=== PATIENT | female | born 1995 | race American Indian/Alaskan Native ===

== ENCOUNTER 2016-05-29 17:43 | Emergency (ER) | payer OTHER ==
[2016-05-29 19:03] LABS: Basophils % (Auto) 0.3 % (0.0-1.8); Hematocrit 40.7 % (30.3-42.9); Hemoglobin 13.7 gm/dl (10.1-14.3); Mean Corpuscular HGB Conc 34 % (30-34); Mean Corpuscular Hemoglobin 31 pg (28-32); Mean Corpuscular Volume 92 fl (79-97); Platelet Count 255 K/mm3 (140-440); Red Blood Count 4.42 M/mm3 (3.65-5.03); Red Cell Distribution Width 12.3 % (13.2-15.2); White Blood Count 6.1 K/mm3 (4.5-11.0)
[2016-05-29 19:14] LABS: Anion Gap 20 mmol/L; BUN/Creatinine Ratio 11.66; Blood Urea Nitrogen 7 mg/dL (7-17); Carbon Dioxide 21 mmol/L (22-30); Chloride 102.9 mmol/L (98-107); Glucose 86 mg/dL (65-100); Potassium 3.6 mmol/L (3.6-5.0); Sodium 140 mmol/L (137-145)
[2016-05-29 19:25] LABS: Urine Drugs of Abuse Note Disclamer
--- NOTE | 2016-05-29 19:53 | Emergency Department Report ---
ED Psych HPI - General Chief Complaint: Psych Stated Complaint: SUICIDAL THOUGHTS Time Seen by Provider: 05/29/16 19:26 Source: patient Mode of arrival: Ambulatory Limitations: No Limitations - History of Present Illness Initial Comments: 20-year-old female with a past medical history of PTSD, depression, and asthma presents to the hospital complains of depression and suicidal thoughts. Patient states she has been suicidal for at least one year intermittently with increase in suicidal ideation for the past week. Patient denies any exacerbating factors and states her life is actually going pretty good. She recently started a new job which she is looking for to starting on June 06. Patient has a plan to shoot herself and has a history of PTSD from being in the . Previous attempt by overdose 1 year ago however, patient did not seek medical treatment at that time. Patient states she hears voices that tell herself to just do it, just let go, however, patient feels like she has more to do on this earth. Patient is not taking any psychiatric medications and has never had any inpatient psychiatric treatment. Patient does not have any physical complaints and denies pain. - Related Data Home Medications Medication Instructions Recorded Confirmed Last Taken No Known Home Medications [No 05/29/16 05/29/16 Unknown Reported Home Medications] Allergies Allergy/AdvReac Type Severity Reaction Status Date / Time No Known Allergies Allergy Unverified 05/29/16 18:24 ED Review of Systems ROS: Stated complaint: SUICIDAL THOUGHTS Other details as noted in HPI Comment: All other systems reviewed and negative Other: Constitutional: No fevers chills Eyes: No eye pain visual changes ENT: No ear pain or throat pain Neck: Denies pain Respiratory: Denies cough wheezing shortness of breath Cardiovascular: Denies chest pain, palpitations, syncope GI: Denies abdominal pain, nausea, vomiting, diarrhea : Denies dysuria Musculoskeletal: Denies back pain Skin: Denies rash, lesions, erythema Neurologic: Denies headache, numbness, weakness Psychiatric: As per HPI ED Past Medical Hx - Past Medical History Hx Psychiatric Treatment: Yes (PTSD, Depression) Hx Asthma: Yes Additional medical history: PTSD - Surgical History Past Surgical History?: No - Social History Smoking Status: Current Every Day Smoker Substance Use Type: Alcohol, Marijuana - Medications Home Medications: Home Medications Medication Instructions Recorded Confirmed Last Taken Type No Known Home Medications [No 05/29/16 05/29/16 Unknown History Reported Home Medications] ED Physical Exam - General Limitations: No Limitations - Other Other exam information: General: No limitations, patient is alert in no acute distress Head exam: Atraumatic, normocephalic Eyes exam: Normal appearance ENT: Moist mucous membrane, normal oropharynx Neck exam: Normal inspection, full range of motion Respiratory exam: Clear to auscultation bilateral, no wheezes, rales, crackles Cardiovascular: Normal rate and rhythm, normal heart sounds Abdomen: Soft, nondistended, and nontender, with normal bowel sounds, no rebound, or guarding Extremity: Full range of motion normal inspection no deformity Back: Normal Inspection, full range of motion, no tenderness Neurologic: Alert, oriented x3, cranial nerves intact, no motor or sensory deficit Psychiatric: normal affect, normal mood Skin: Warm, dry, intact ED Course Vital Signs 05/29/16 05/29/16 05/29/16 18:24 18:42 19:24 Temperature 98.2 F Pulse Rate 95 H 71 Respiratory 16 16 18 Rate Blood Pressure 122/73 Blood Pressure 115/79 [Left] O2 Sat by Pulse 100 100 100 Oximetry ED Medical Decision Making - Lab Data Result diagrams: 05/29/16 18:46 05/29/16 18:46 Lab Results 05/29/16 05/29/16 05/29/16 Range/Units 18:42 18:42 18:46 WBC (4.5-11.0) K/mm3 RBC (3.65-5.03) M/mm3 Hgb (10.1-14.3) gm/dl Hct (30.3-42.9) % MCV (79-97) fl MCH (28-32) pg MCHC (30-34) % RDW (13.2-15.2) % Plt Count (140-440) K/mm3 Lymph % (Auto) (13.4-35.0) % Nobles % (Auto) (0.0-7.3) % Eos % (Auto) (0.0-4.3) % Baso % (Auto) (0.0-1.8) % Lymph # (1.2-5.4) K/mm3 Nobles # (0.0-0.8) K/mm3 Eos # (0.0-0.4) K/mm3 Baso # (0.0-0.1) K/mm3 Seg Neutrophils % (40.0-70.0) % Seg Neutrophils # (1.8-7.7) K/mm3 Sodium 140 (137-145) mmol/L Potassium 3.6 (3.6-5.0) mmol/L Chloride 102.9 (98-107) mmol/L Carbon Dioxide 21 L (22-30) mmol/L Anion Gap 20 mmol/L BUN 7 (7-17) mg/dL Creatinine 0.6 L (0.7-1.2) mg/dL Estimated GFR > 60 ml/min BUN/Creatinine Ratio 11.66 % Glucose 86 (65-100) mg/dL Calcium 9.0 (8.4-10.2) mg/dL Urine Color Yellow (Yellow) Urine Turbidity Clear (Clear) Urine pH 5.0 (5.0-7.0) Ur Specific Lindsay 1.015 (1.003-1.030) Urine Protein <15 mg/dl (Negative) mg/dL Urine Glucose (UA) Neg (Negative) mg/dL Urine Ketones 20 (Negative) mg/dL Urine Blood Mod (Negative) Urine Nitrite Neg (Negative) Urine Bilirubin Neg (Negative) Urine Urobilinogen < 2.0 (<2.0) mg/dL Ur Leukocyte Esterase Neg (Negative) Urine WBC (Auto) 1.0 (0.0-6.0) /HPF Urine RBC (Auto) 3.0 (0.0-6.0) /HPF U Epithel Cells (Auto) 6.0 (0-13.0) /HPF Urine Bacteria (Auto) 1+ (Negative) /HPF Urine Mucus 1+ /HPF Urine HCG, Qual Negative (Negative) Urine Opiates Screen Presumptive negative Urine Methadone Screen Presumptive negative Ur Barbiturates Screen Presumptive negative Ur Phencyclidine Scrn Presumptive negative Ur Amphetamines Screen Presumptive negative U Benzodiazepines Scrn Presumptive negative Urine Cocaine Screen Presumptive negative U Marijuana (THC) Screen Presumptive positive Drugs of Abuse Note Disclamer Plasma/Serum Alcohol (0-0.07) gm% 05/29/16 05/29/16 Range/Units 18:46 18:46 WBC 6.1 (4.5-11.0) K/mm3 RBC 4.42 (3.65-5.03) M/mm3 Hgb 13.7 (10.1-14.3) gm/dl Hct 40.7 (30.3-42.9) % MCV 92 (79-97) fl MCH 31 (28-32) pg MCHC 34 (30-34) % RDW 12.3 L (13.2-15.2) % Plt Count 255 (140-440) K/mm3 Lymph % (Auto) 12.6 L (13.4-35.0) % Nobles % (Auto) 2.7 (0.0-7.3) % Eos % (Auto) 0.0 (0.0-4.3) % Baso % (Auto) 0.3 (0.0-1.8) % Lymph # 0.8 L (1.2-5.4) K/mm3 Nobles # 0.2 (0.0-0.8) K/mm3 Eos # 0.0 (0.0-0.4) K/mm3 Baso # 0.0 (0.0-0.1) K/mm3 Seg Neutrophils % 84.4 H (40.0-70.0) % Seg Neutrophils # 5.1 (1.8-7.7) K/mm3 Sodium (137-145) mmol/L Potassium (3.6-5.0) mmol/L Chloride (98-107) mmol/L Carbon Dioxide (22-30) mmol/L Anion Gap mmol/L BUN (7-17) mg/dL Creatinine (0.7-1.2) mg/dL Estimated GFR ml/min BUN/Creatinine Ratio % Glucose (65-100) mg/dL Calcium (8.4-10.2) mg/dL Urine Color (Yellow) Urine Turbidity (Clear) Urine pH (5.0-7.0) Ur Specific Lindsay (1.003-1.030) Urine Protein (Negative) mg/dL Urine Glucose (UA) (Negative) mg/dL Urine Ketones (Negative) mg/dL Urine Blood (Negative) Urine Nitrite (Negative) Urine Bilirubin (Negative) Urine Urobilinogen (<2.0) mg/dL Ur Leukocyte Esterase (Negative) Urine WBC (Auto) (0.0-6.0) /HPF Urine RBC (Auto) (0.0-6.0) /HPF U Epithel Cells (Auto) (0-13.0) /HPF Urine Bacteria (Auto) (Negative) /HPF Urine Mucus /HPF Urine HCG, Qual (Negative) Urine Opiates Screen Urine Methadone Screen Ur Barbiturates Screen Ur Phencyclidine Scrn Ur Amphetamines Screen U Benzodiazepines Scrn Urine Cocaine Screen U Marijuana (THC) Screen Drugs of Abuse Note Plasma/Serum Alcohol < 0.01 (0-0.07) gm% - Medical Decision Making 1013 and transfer form has been signed. Patient requires inpatient psychiatric treatment for stabilization of suicidal thoughts with plan. Patient is medically cleared - Differential Diagnosis PTSD, bipolar, depression, schizophrenia, psychosis Critical Care Time: No Critical care attestation.: If time is entered above; I have spent that time in minutes in the direct care of this critically ill patient, excluding procedure time. ED Disposition Clinical Impression: Suicidal ideation, PTSD (post-traumatic stress disorder), Auditory hallucination, Medical clearance for psychiatric admission, Marijuana use Disposition: DC/TX PSY HOSP/PSY UNIT Is pt being admited?: No Condition: Stable Time of Disposition: 19:57 (awaiting acceptance)
[2016-05-29 19:57] LABS: Bacteria,Urine 1+ /HPF (Negative); Bilirubin,Urine NEG (Negative); Blood,Urine MOD (Negative); Ketones,Urine 20 mg/dL (Negative); Leukocyte Esterase,Urine NEG (Negative); Mucus,Urine 1+ /HPF; Nitrite,Urine NEG (Negative); Protein,Urine <15 mg/dL mg/dL (Negative); Urobilinogen,Urine < 2.0 mg/dL (<2.0)
--- NOTE | 2016-05-30 11:16 | Consultation ---
History of Present Illness - Reason for Consult Consult date: 05/30/16 Reason for consult: Psychiatry Follow-up Requesting physician: FREDIS ELLSWORTH - Chief Complaint Chief complaint: "I want to feel better" - History of Present Psychiatric Illness 20-year-old AA female presents to the hospital complaining of being depressed with and suicidal thoughts. Today upon arrival to patient's room she was lying down. Patient speech is low in tone and slow. She states, "I talk like this all the time." She states feeling depressed because she has experienced lots of in her family recently. A close cousin committed suicide last year. She states that they were very close. Also, patient admits to trying to commit suicide last year by taking 2 benadryl pills. Per the patient, she fell asleep after that attempt. She denies any other attempts at this time. Patient acknowledged seeing an psychiatrist in the [employer]. She don't remember why she saw the psychiatrist or what type of medications she took. She states that she have nightmares about her cousin's for the past couple months that keep her awake. She states that she experience AH's telling her, "Go ahead an kill yourself" intermittently. Currently, patient cannot tell me if she is suicidal with a plan, "I just don't know" was her response to the question. She explained being depressed for "awhile." She described her depression as being sad most of the time, hopeless, being isolated and having no energy to do anything. Patient resides with her parents and suppose to start a new job in a week. 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 Fam hx Aunt - Bipolar - Social History Social history: lives with family, other ([employer], Smokes marijuana occasionally ) Mental Status Exam - Vital signs Last Vital Signs Temp 97.7 F 05/30/16 07:54 Pulse 92 H 05/30/16 07:54 Resp 16 05/30/16 07:54 BP 117/76 05/30/16 07:54 Pulse Ox 100 05/30/16 07:54 - Exam Narrative exam: ROS (+) depression Orientation: time, place, person Affect: flat Mood: other (Emotional) Thought content: other (intact) Thought Process: Intact Perceptions: auditory Speech: slow (Low Tone) Concentration: other (Intact) Motor activity: other (Ambulatory) Level of consciousness: alert Memory: Intact Sleep Symptoms: None ("Slept 4 hopurs last night") Interaction: cooperative Results Result Diagrams: 05/29/16 18:46 05/29/16 18:46 Abnormal lab results 05/29/16 05/29/16 Range/Units 18:46 18:46 RDW 12.3 L (13.2-15.2) % Lymph % (Auto) 12.6 L (13.4-35.0) % Lymph # 0.8 L (1.2-5.4) K/mm3 Seg Neutrophils % 84.4 H (40.0-70.0) % Carbon Dioxide 21 L (22-30) mmol/L Creatinine 0.6 L (0.7-1.2) mg/dL All other labs normal. Assessment and Plan Assessment and plan: Impression: 20-year-old AA female presents to the hospital complaining of being depressed with and suicidal thoughts. Patient is emotional during assessment and admit to being depressed after multiple deaths in her family. She had attempted suicide by taking 2 benadryl pills last year and states that was her only attempt. She is positive for marijuana. Recommendation/Plan: Continue with 1013 with possible placement to inpatient psy services. Remeron 7.5mg PO HS for depression. Black Box warning discussed with patient reference SI's and medication induced rogelio (Antidepressants).
[2016-05-30] MEDS ORDERED: HALDOL IM ONE (12:55)
[2016-05-30] MEDS ORDERED: ATIVAN IM ONE (12:55)
[2016-05-30] MEDS ORDERED: ATIVAN IM PRN (14:43)
[2016-05-30] MEDS ORDERED: HALDOL IM PRN (14:44)
--- NOTE | 2016-05-30 14:45 | Event Note ---
Date: 05/30/16 Vital signs are reviewed and appreciated. Psychiatric consultation is appreciated. Patient is awaiting psychiatric placement Patient had an episode of agitation today, required Haldol, Ativan for patient safety and for staff safety. Patient is currently awaiting psychiatric placement at this time. Vital Signs 05/29/16 05/29/16 05/29/16 18:24 18:42 19:24 Temperature 98.2 F Pulse Rate 95 H 71 Respiratory 16 16 18 Rate Blood Pressure 122/73 Blood Pressure 115/79 [Left] O2 Sat by Pulse 100 100 100 Oximetry 05/29/16 05/30/16 05/30/16 19:45 07:54 12:02 Temperature 98 F 97.7 F 97.7 F Pulse Rate 87 92 H 66 Respiratory 18 16 16 Rate Blood Pressure Blood Pressure 158/99 117/76 128/72 [Left] O2 Sat by Pulse 100 100 98 Oximetry
[2016-05-30] MEDS: REMERON PO SCH (22:33)
--- NOTE | 2016-05-31 12:42 | Progress Note ---
Subjective - Reason for Consult Consult date: 05/31/16 Reason for consult: Psychiatry Follow-uo - Chief Complaint Chief complaint: "I feel so much better today" 20-year-old AA female presents to the hospital complaining of being depressed with and suicidal thoughts. Today presentation is much different than yesterday. She stated that she got a lot of rest, "About 8 hours of sleep'" She denied having nightmares, SI/HI's, or AVH's during our discussion. She rate her depression a 3/10, with 10 being the worse. I spoke with her mom and she is her support system along with her . Patient is currently scheduled to start a new job 05 Jun 2016 per her mother. Patient denied any side effects of the Remeron. Mental Status Exam - Vital signs Last Vital Signs Temp 97.8 F 05/31/16 07:38 Pulse 108 H 05/31/16 07:38 Resp 20 05/31/16 07:38 BP 117/75 05/31/16 07:38 Pulse Ox 97 05/31/16 07:38 - Exam Orientation: time, place, person Affect: normal Mood: appropriate Thought content: other (Intact) Thought Process: Intact Perceptions: none Speech: normal rate and pattern Concentration: other (Inatct) Motor activity: normal Level of consciousness: alert Memory: Intact Sleep Symptoms: None Interaction: cooperative, pleasant Assessment and Plan Impression: 20-year-old AA female presents to the hospital complaining of being depressed with and suicidal thoughts. Today patient presents with a linear thought process and denies SI/HI's, AVH's, or nightmares. Spoke with her mother and she will be the patients support system. Patient currently lives with her parents and scheduled to start a new job 05 Jun 2016. Recommendation/Plan: Possibly rescind 1013 tomorrow. Will provide her outpatient mental health information in her local area [facility]. Continue Remeron 7.5 mg PO HS.
[2016-05-31] MEDS: REMERON PO SCH (23:15)
--- NOTE | 2016-06-01 15:52 | Progress Note ---
Subjective - Reason for Consult Reason for consult: psych management - Chief Complaint Chief complaint: "I feel so much better today" 20-year-old AA female presents to the hospital complaining of being depressed with and suicidal thoughts. Patient continues to have good spirits. She is denying any SI/HI/AH/VH. No problems with the medications. Per the [employer] who saw her yesterday, the family feels comfortable taking her home and do not feel she's at risk of harm to self. Patient hasn't shown any gestures of harm and feel ready to return home. Mental Status Exam - Vital signs Last Vital Signs Temp 98.7 F 06/01/16 09:29 Pulse 75 06/01/16 09:29 Resp 12 06/01/16 09:29 BP 134/76 06/01/16 09:29 Pulse Ox 100 06/01/16 09:29 - Exam Orientation: time, place, person Affect: normal Mood: appropriate Thought Process: Intact Perceptions: none Speech: normal rate and pattern Concentration: focused Motor activity: normal Level of consciousness: alert Memory: Intact Sleep Symptoms: None Interaction: cooperative Mini mental status exam(if necessary): 24-30 Assessment and Plan Impression: 20-year-old AA female presents to the hospital complaining of being depressed with and suicidal thoughts. Today patient continues to present with a linear thought process and denies SI/HI's, AVH's, or nightmares. Recommendation/Plan: Rescind 1013. follow up with [facility] tomorrow AM. Continue Remeron 7.5 mg PO HS.
--- NOTE | 2016-06-01 19:32 | Emergency Department Report ---
Blank Doc - Documentation Documentation: Patient was evaluated by psychiatrist Dr. Merritt. Note reviewed. Patient currently denies SI, HI, auditory or visual hallucinations. Patient has not been suicidal at least for 2 days now. [facility] is called to take her home. Patient hasn't shown any gestures at home and feels ready to go home. Medications recommended Remeron 7.5mg at bedtime will be prescribed and patient will be encouraged to follow with [facility] in a.m as recommended
[2016-06-01 20:13] VITALS: BP 115/61
== END 2016-06-01 20:15 | disposition home or self-care (01) ==
LOC: EEVIPCON 17:43 → ED 17:43
DX: F43.10 Post-traumatic stress disorder, unspecified (principal); R45.851 Suicidal ideations; R44.0 Auditory hallucinations; F12.90 Cannabis use, unspecified, uncomplicated; J45.909 Unspecified asthma, uncomplicated; F17.200 Nicotine dependence, unspecified, uncomplicated
CPT/HCPCS: 36415; 80048; 80307; 81001; 81025; 85025; 96372; 99285; G0480; J1630; J2060; 80320